=== PATIENT | male | born 1985 | race Two or more races ===

== ENCOUNTER 2022-10-27 19:07 | Emergency (ER) | payer MEDICAID, OTHER ==
[~2022-10-27] VITALS: Ht 170.2 cm; Wt 90.9 kg
[2022-10-27] MEDS ORDERED: ZOFR4T PO (21:10)
[2022-10-27] MEDS ORDERED: HYDR-4902 PO (21:10)
[2022-10-27 21:20] VITALS: BP 143/84
== END 2022-10-27 21:28 | disposition home or self-care (01) ==
LOC: ER 19:07
DX: S62.325A Displaced fracture of shaft of fourth metacarpal bone, left hand, initial encounter for closed fracture (principal); E11.9 Type 2 diabetes mellitus without complications; I10 Essential (primary) hypertension; Z79.1 Long term (current) use of non-steroidal anti-inflammatories (NSAID); Z79.899 Other long term (current) drug therapy; W18.43XA Slipping, tripping and stumbling without falling due to stepping from one level to another, initial encounter; Y93.89 Activity, other specified; Y92.89 Other specified places as the place of occurrence of the external cause; Y99.8 Other external cause status
CPT/HCPCS: 29125; 73130